=== PATIENT | male | born 1945 | race Caucasian/White ===

== ENCOUNTER 2020-10-19 18:16 | Observation (INO) | payer OTHER, SELFPAY ==
[2020-10-19 18:05] VITALS: BP 107/77; PULSE 69; RESP 18; TEMP 36.8; O2SAT 98
[2020-10-19 18:40] VITALS: BMI 31.5
--- NOTE | 2020-10-19 19:24 | PM.HP.1 ---
History of Present Illness History of Present Illness Date Patient Seen: 10/19/20 Time Patient Seen: 19:24 Chief complaint: TIA Narrative: Patient is a 75-year-old male Sara Anthony who presented today to [facility] with a chief complaint of episode of complete loss of vision in the right eye and cloudy vision in the left eye last night at approximately 2000, lasting for approximately 20 minutes. He stated he had intermittent flashing today, and has balance issues but states that this is from his chronic pain and is is normal baseline. Patient states that his symptoms had resolved the did have some pain in his eyes and feels that may he may be having some photophobia but nothing spectacular. He notes that his normal level generalized pain throughout the body normally he ambulates with a walker or cane but spends majority of his time in bed. Upon admit to [facility] patient reports that he has had no further symptoms, denies chest pain, shortness of breath, weakness, changes in vision, difficulty swallowing, new changes in worsening in balance or coordination, nausea, vomiting, diarrhea, fever, chills, body aches, swelling of hands or feet, rashes, recent illness, injury or trauma. Patient's vitals at the time of transfer temp 36.5?, BP 135/108, HR 66, RR 12, O2 saturation 97% on room air. Patient's labs upon transfer positive rhino virus, RBC 4.32, RBCs 4+ with macrocytosis, glucose 136, EGFR 73, lipase 63. EKG:showed a paced rate of 70 no changes from prior EKG on 02/05/2020, Head CT: No acute intracranial process noted. NIH score of 0 at 12:14 p.m. 10/19/2020. Patient reserved complete workup in ED within EKG and CT of the head were negative for any changes, they did not have MR capabilities and so patient was to be transferred to [facility]. Patient has a history of atrial fibrillation on Eliquis to, CHF, COPD, CVA x 2, thoracic aortic aneurysm, patient has pacemaker, osteoarthritis and rheumatoid arthritis in which he is on immunosuppressive medication. Patient takes singular, Lasix, Mucinex, digoxin, Humira, albuterol HFA, symbicort INH, gabapentin, prednisone, metoprolol, Jardiance, and lisinopril. Patient reports that he has been seen at [facility], and 's in [place] for his previous cardiac and stroke history. Patient's vitals upon admit to [facility] a temp 98.2?, BP 107/77, HR 69, RR 18, O2 saturation 98% on room air. NIH score:0, GCS:15 Patient History Medical History (Updated 10/19/20 @ 20:37 by GABRIELLE Oliver) Atrial fibrillation CHF (congestive heart failure) Chronic pain COPD (chronic obstructive pulmonary disease) History of CVA (cerebrovascular accident) Osteoarthritis Psoriatic arthritis Rheumatoid arthritis Thoracic aortic aneurysm Surgical History (Updated 10/19/20 @ 20:36 by GABRIELLE Oliver) History of bilateral cataract extraction History of permanent cardiac pacemaker placement Family & Social History Family History Mother Neuropathy Rheumatoid arthritis Sister Rheumatoid arthritis Neuropathy Social History: household members Lives alone, unmarried Prior Living Arrangements House- pt is bed bound 80% of the time and ambulates with & walker or cane. Safety & Behavioral: Feels Safe in Current Yes Environment Suicidal Ideation Description None Tobacco & Substance use: Tobacco type cigarettes smoking x 65 yrs Smoking Status Current daily smoker alcohol intake former, none currently pt denies substance use Meds Home Medications and Allergies Home Medications Medication Instructions Recorded Confirmed Type acetaminophen 650 mg PO Q4H PRN 10/19/20 10/19/20 History apixaban 5 mg PO BID 10/19/20 10/19/20 History atorvastatin 40 mg PO BEDTIME 10/19/20 10/19/20 History cholecalciferol (vitamin D3) 50 mcg PO DAILY 10/19/20 10/19/20 History digoxin 125 mcg PO DAILY 10/19/20 10/19/20 History empagliflozin 10 mg PO DAILY 10/19/20 10/19/20 History folic acid 2 mg PO DAILY 10/19/20 10/19/20 History furosemide 40 mg PO DAILY 10/19/20 10/19/20 History gabapentin 600 mg PO TID 10/19/20 10/19/20 History lisinopril 5 mg PO DAILY 10/19/20 10/19/20 History loratadine 10 mg PO DAILY 10/19/20 10/19/20 History methotrexate sodium 15 mg PO QWEEK 10/19/20 10/19/20 History metoprolol succinate 200 mg PO DAILY 10/19/20 10/19/20 History fxsbnubxfjhq-sbd-tvba-FA-vit K 1 tab PO DAILY 10/19/20 10/19/20 History [Adults Multivitamin] prednisone 2 mg PO DAILY 10/19/20 10/19/20 History Review of Systems Review of Systems ROS: Yes All systems reviewed with the patient and are negative except as otherwise documented Exam Vital Signs (past 8 hours): - 10/19/20 18:05 Temperature 98.2 F Pulse Rate 69 Respiratory Rate 18 Blood Pressure 107/77 Pulse Oximetry 98 Oxygen Flow Rate 0 Narrative Exam Narrative: General: Patient is a well-developed, well-nourished in no distress at this time. HEENT: Normocephalic, atraumatic, extraocular muscles intact, oral pharynx is clear and mucous membranes are moist. Neck is supple and symmetric, trachea is midline, no adenopathy, no thyroid enlargement, nontender, no masses palpated. Negative for JVD Chest: Normal AP diameter and contour without kyphoscoliosis, no nasal flaring, retractions, or tachypneic labored Lungs: Auscultation of all lung miller are clear without adventitious sounds, wheezes, rhonchi, or rales. Except occ. wheezing in the right lower lobe. Cardio: regular rate and rhythm without murmur, rubs, or gallops, no carotid bruit, no cardiac pulsations present. Abdomen: Soft nontender, negative for organomegaly, or masses. Bowel sounds are present in all 4 quadrants without guarding or rebound, no CVA tenderness. Musculoskeletal: Muscle strength and tone are equal within normal limits, no deformity, crepitus, effusions, cyanosis, clubbing or edema present. Full range of motion intact radial and pedal pulses are normal. Skin: Warm dry and intact without rashes, ulcerations or petechiae. Neuro: Alert and orientated x3, strength is +5/5 in all extremities, sensation to touch intact, no gross deficits noted of cranial nerves. Psych: Patient has a well-kept appearance, appropriate affect, mental status attitude thought context and judgment are appropriate for age. Assessment & Plan Assessment & Plan narrative: This patient requires acute care inpatient hospital management for possible TIA and higher diagnostic evaluation. The patient is at much higher risk for medical and surgical complications because of his medical history of atrial fibrillation on Eliquis, CHF, COPD, CVA, obesity, thoracic aortic aneurysm, patient has pacemaker, osteoarthritis and rheumatoid arthritis in which he is on immunosuppressive medication. These factors increase the difficulty and complexity of medical and surgical interventions and increases the chances of poor outcomes such as morbidity and mortality. The patient's tobacco abuse & COPD will impact his oxygenation, which will likely contribute to increased risk for stroke. 1. Right sided visual disturbance/vision loss-left eye visual floaters, rule of TIA with history of CVA x 2- last 2019, acute, not present on admission -differential diagnosis TIA, stroke symptoms lasting greater than 24 hours, ischemic stroke, intracranial hemorrhage, subdural hematoma, epidural hematoma, seizure, brain tumor, migraine, vertigo, hypoglycemia, Virgen [place] syndrome, multiple sclerosis, aortic dissection Patient's labs upon transfer positive rhino virus, RBC 4.32, RBCs 4+ with macrocytosis, glucose 136, EGFR 73, lipase 63. EKG:showed a paced rate of 70 no changes from prior EKG on 02/05/2020, Head CT: No acute intracranial process noted. NIH score of 0 at 12:14 p.m. 10/19/2020.vitals upon admit to [facility] a temp 98.2?, BP 107/77, HR 69, RR 18, O2 saturation 98% on room air. NIH score:0, GCS:15, ABCD score:3 Vital signs q.4 hours, neuro checks q.2 hours for 1st 24 hours if unstable, once B/P <180/100 then q.4 hours, notify provider for temp greater than 38 C, , heart rate >100 -treat systolic blood pressure>220 or diastolic blood pressure> 120 -activity bed rest with up with assist only, until initial physical therapy assessment is performed, then mobilize as guided by Physical therapy, strict fall precautions. -supplemental O2 to maintain> 94%, check capillary blood glucose q.6 hours. -Diet NPO until swallow evaluation is done, then heart healthy if cleared -fluids:Saline Lock -Medications: Aspirin 325 mg p.o. q.day within 48 hours, atorvastatin increased to 80 mg daily. Continue pt's Eliquis -labs CBC with platelets, PT/PTT/INR, CMP, TSH, troponins, glucose, hemoglobin A1c, ESR/CRP, Lipid panel -neurology consult, PT/OT/ST evaluations -diagnostics, non-contrast CT of head: No acute intracranial process, EKG: Paced rate of 70, Ordered: echo & Stroke MR tomorrow -discharge planning establish patient has a safe home environment if going home 2. Atrial fibrillation in the setting of CHF with a history of thoracic aortic aneurysm, acute on chronic, not present on admission -pacemaker in place paced rate 69 on admit. -echo ordered for tomorrow -continue patient's Eliquis, digoxin, metoprolol, lisinopril, lasix, atorvastatin 3. Osteoarthritis/rheumatoid arthritis/chronic pain, acute on chronic, present on admission -continue patient's methotrexate, gabapentin, prednisone, jardiance 4. COPD, chronic, not present on admission Continue patient's albuterol HFA inhaler, Symbicort 160-4.5 mcg inhaler Code status: Full code as documented in patient's medical chart from [facility] COVID PCR: Negative-Positive rhino virus patient placed on isolation precautions Surrogate decisionmaker: Rose Marie Islas (Daughter) DVT/VTE prophylaxis: Continue patient's Eliquis, and SCDs Scores GCS [place] coma scale eye opening: Spontaneous [place] coma scale verbal response: Orientated Cooper coma scale motor response: Obey commands Cooper coma scale total score: 15 ABCD2 Age >= 60 years: yes Initial BP. Either SBP >= 140 or DBP >= 90.: yes Clinical features of the TIA: other symptoms Duration of symptoms: 10-59 minutes History of diabetes: no ABCD2 Score: 3 NIHSS Level of Conciousness: Alert, keenly responsive Ask month/age: Answers both questions correctly. Open/close eyes, close hand: Performs both tasks correctly Best gaze horizontal: Normal Visual miller: No visual loss Facial palsy: Normal symetrical movement Left arm drift: No drift for full 10 sec Right arm drift: No drift for full 10 sec Left leg drift: No drift for full 5 sec Right leg drift: No drift for full 5 sec Limb ataxia: Absent Sensory on face/arms/legs: Normal, no sensory loss Best language: No aphasia, normal Dysarthria: Normal Extinction or inattention: No abnormality Total NIH Stroke scale score: 0 Wells' Criteria for PE Clinical signs and symptoms of DVT: No PE is #1 Dx or equally likely: No Heart rate > 100: No Immobilization at least 3 days or surg in previous 4 weeks: Yes History of PE or DVT: No Hemoptysis: No Malignancy w/Treatment within 6 months or palliative: No Wells' PE Score total: 1.5 Quality Stroke Contraindication Not Initiating IV-Tpa: Not indicated Onset of Symptoms Date: 10/18/20 Onset of Symptoms Time: 20:00 Symptom Onset Unknown: Yes Contraindication Antithromb by Day Two: Not indicated (Patient on Eliquis) Rehab Services Assessed: Rehabilitation therapy VTE Deep Vein Thrombosis/Pulmonary Embolism Present on Admission: No MIPS - Admit I confirm the patient?s Advance Care Plan is present, Code status is documented, Surrogate decision maker is in patient?s record [If Yes, STOP here]: Yes
[2020-10-19] MEDS: APIXABAN 5 MG TABLET PO (20:29)
[2020-10-19] MEDS: GABAPENTIN 600 MG TABLET PO (20:30)
[2020-10-19] MEDS: ATORVASTATIN 20 MG TABLET 80 MG PO (20:30)
[2020-10-20 00:26] VITALS: BP 95/67; PULSE 64; RESP 16; TEMP 36.2; O2SAT 94
--- NOTE | 2020-10-20 02:07 | PC.NURSE ---
patient is very drowsy; oriented except to year. NIH = 1 for slight slurring of words. Breath sounds w/late expiratory wheezing throughout; RA sat 94%. Denies SOB, cough or nasal drainage. Is positive for rhinovirus and is on droplet precautions. HRR w/telemetry reading of accelerated ventricular rhythm w/BBB. Denies nausea. BT present and abdomen is soft. Has not yet voided this shift but denies dysuria, frequency or urgency. Is able to turn himself. Gait not assessed but patient states he is weak in LE and uses cane for ambulation. 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 Denies pain. Refuses SCD's so reminded to ankle wave. Fall risk score is high and bed alarm is activated.
[2020-10-20 05:58] VITALS: BP 103/64; PULSE 84; RESP 18; TEMP 36.6; O2SAT 95
[2020-10-20 06:02] LABS: Add Manual Diff / Slide Review NO; Basophils Absolute Auto 0 /uL (0-100); Basophils Percent Auto 0.3 % (0-2); Eosinophils Absolute Auto 0 /uL (0-450); Eosinophils Percent Auto 0.1 % (2-4); Hematocrit 46.3 % (41-53); Hemoglobin 15.9 g/dL (13.5-17.5); Lymphocytes Absolute Auto 800 /uL (1100-4500); Lymphocytes Percent Auto 8.2 % (25-40); Mean Corpuscular HGB Conc 34.3 % (30-36); Mean Corpuscular Hemoglobin 38.9 PG (26-34); Mean Corpuscular Volume 113.4 fL (80-100); Monocytes Absolute Auto 500 /uL (0-900); Monocytes Percent Auto 4.6 % (3-14); Neutrophils Absolute Auto 8800 /uL (1500-7000); Neutrophils Percent Auto 86.8 % (50-75); Platelet Count 136 X10^3/uL (150-400); Red Blood Cell Count 4.09 X10^6/uL (4.5-5.9); Red Cell Distribution Width 14.4 % (11.6-14.8); White Blood Cell Count 10.1 X10^3/uL (4.5-11.0)
[2020-10-20 06:16] LABS: Cholesterol 101 mg/dL (140-199); HDL Cholesterol 29 mg/dL (40-60); LDL Cholesterol Calculated 54 mg/dL (<100); Triglycerides 88 mg/dL (35-150)
[2020-10-20 06:18] LABS: Blood Urea Nitrogen 20 mg/dL (9-20); Calcium 9.2 mg/dL (8.4-10.2); Carbon Dioxide 23 mmol/L (22-32); Chloride 107 mmol/L (98-107); Estimated Glomerular Filt Rate > 60.0 mL/min (>60); Glucose 139 mg/dL (80-110); HEMOLYSIS < 15 (0-50); Potassium 4.3 mmol/L (3.4-5.1); Sodium 137 mmol/L (137-145)
[2020-10-20 06:22] LABS: Macrocytosis 2+
[2020-10-20 07:55] VITALS: BP 106/67; PULSE 66; RESP 17; TEMP 36.5; O2SAT 97
[2020-10-20 08:18] VITALS: BP 106/67; PULSE 66
[2020-10-20] MEDS: ASPIRIN EC 81 MG TABLET PO (08:18)
[2020-10-20] MEDS: DIGOXIN 0.125 MG TABLET PO (08:18)
[2020-10-20 08:19] VITALS: BP 106/67; PULSE 66
[2020-10-20] MEDS: METOPROLOL ER 50 MG TABLET 200 MG PO (08:19)
[2020-10-20] MEDS: FUROSEMIDE 40 MG TABLET PO (08:19)
[2020-10-20] MEDS: GABAPENTIN 600 MG TABLET PO (08:19)
[2020-10-20] MEDS: lisinopriL 5 MG TABLET PO (08:19)
[2020-10-20] MEDS: predniSONE 1 MG TABLET 2 MG PO (08:20)
[2020-10-20] MEDS: SODIUM CHLORIDE 0.9% FLUSH 10 ML IV (08:20)
[2020-10-20] MEDS: ACETAMINOPHEN 325 MG TABLET 650 MG PO (08:20)
[2020-10-20] MEDS: APIXABAN 5 MG TABLET PO (08:23)
--- NOTE | 2020-10-20 08:48 | CM.DANOTE ---
Addendum entered by Katina Peres LPN 10/20/20 11:18: Dr. Curiel confirms that more tests are pending for today but pt may be ready for d/c after this. Spoke with travel agency manager Renee who ok's use of the Medical Relief fund so that a rapid and appropriate d/c from the hospital can be facilitated. Pt has confirmed that he has no one who can transport him home. GERI Perez, taking over case for rest of today, is updated. Original Note: Discharge Planning/Care Management DCP: assessment: case received, EMR reviewed and met with pt. Introduced self and role. Pt is a 75year old male who admitted yesterday evening to care of hospitalist team. Payer: Medicare and [facility] Pt voices his frustration re having been directed by the [place] to [facility] and then sent to for an MRI, which I cannot have because of my pacemaker. He says he is expecting a call from the [place] for further discussion. He is now focused on waiting to see hospitalist today. His family contacts are his daughter Rose Marie Islas: [phone]/ [place]. (Currently off on a fishing boat and not available) and his sister Joelle/[place]. P: follow prn....Should know more after Team Rounds CM Discharge Assessment Start: 10/20/20 08:46 Freq: Status: Active Protocol: Document 10/20/20 08:46 ITV (Rec: 10/20/20 08:48 ITV [id number]) Discharge Planning Assessment Advance Directives? No History Provided By Patient,Medical Record Has Patient been admitted in last 30 No days? Prior Living Arrangements House Household Members none Is patient alert and oriented? Yes DME Already Rented / Owned Cane Review Status In Process
--- NOTE | 2020-10-20 09:40 | DI.US.S_ITS ---
PROCEDURE: US CAROTID DOPPLER BI INDICATIONS: TRANSIENT VISION LOSS TECHNIQUE: Color and pulse Doppler interrogation was performed of both carotid systems, with image documentation and velocity measurements. COMPARISON: None. FINDINGS: Stenosis calculations are based on SRU (Society of Radiologists in Ultrasound) criteria. Right side: Common carotid artery peak systolic velocity: 34 cm/sec. Internal carotid artery peak systolic velocity: 47 cm/sec. Internal carotid artery end diastolic velocity: 15 cm/sec. External carotid artery peak systolic velocity: 66 cm/sec. ICA/CCA peak systolic ratio: 1.4 . Boyle scale imaging description: Moderate soft plaque Percent internal carotid artery stenosis: Less than 50% stenosis . Vertebral artery: Flow direction is antegrade. Left side: Common carotid artery peak systolic velocity: 37 cm/sec. Internal carotid artery peak systolic velocity: 50 cm/sec. Internal carotid artery end diastolic velocity: 20 cm/sec. External carotid artery peak systolic velocity: 50 cm/sec. ICA/CCA peak systolic ratio: 1.3 . Boyle scale imaging description: Moderate soft plaque Percent internal carotid artery stenosis: Less than 50% stenosis . Vertebral artery: Flow direction is antegrade. IMPRESSION: Less than 50% stenosis within the proximal internal carotid arteries bilaterally. Vertebral arterial flow appears normal in direction and phasicity. Dictated by: Javier Horn M.D. on 10/20/2020 at 15:33 Approved by: Javier Horn M.D. on 10/20/2020 at 15:34
[2020-10-20 10:04] LABS: C-Reactive Protein Quant 0.8 mg/dL (<1.0)
--- NOTE | 2020-10-20 10:05 | PT.IIE ---
Surgical History (Last Updated 10/19/20 @ 20:36 by Clare [facility]ain [facility] History of bilateral cataract extraction History of permanent cardiac pacemaker placement Medical History (Last Updated 10/19/20 @ 20:37 [facility] Atrial fibrillation CHF (congestive heart failure) Chronic pain COPD (chronic obstructive pulmonary disease) History of CVA (cerebrovascular accident) Osteoarthritis Psoriatic arthritis Rheumatoid arthritis Thoracic aortic aneurysm Physical Therapy Inpatient Evaluation/Re-Eval M1 PT/OT-IP Prior Functional Status Start: 10/20/20 11:17 Freq: NEEDED Status: Active Protocol: Document 10/20/20 10:05 AB (Rec: 10/20/20 11:39 [email or web address]) Medical Review Prior Functional Status Medical History Reviewed Yes Communication able to make needs known Mobility and Gait pt stated that he is modified indpeendent with all mobilities and ambulaiton using mostly a 4WW but occasionally a SPC depending on how he feels/pain. Social History Household Members none Living Arrangements Mobile home Number of Floors (Floors) One Floor Number of Stairs To Enter/Railing? ramp to enter Home Environment Standard Height Toilet,High Toilet,Tub/Shower Home Equipment Four Wheel Walker,Straight Cane,Power Wheelchair/Scooter, Shower Seat with Backrest,Grab Bars Near Toilet,Grab Bars In Shower Additional Social History Comment pt has an adjustable bed pt stated that he only uses his power w/c for long distance mobility M2 PT-IP Current Condition Start: 10/20/20 11:17 Freq: NEEDED Status: Active Protocol: Document 10/20/20 10:05 AB (Rec: 10/20/20 11:39 AB [id number]) Physical Therapy Current Condition Current Condition Evaluation Date 10/20/20 Treatment Diagnosis TIA; difficulty in walking Onset Date 10/19/20 M3 PT-IP Subjective Start: 10/20/20 11:17 Freq: NEEDED Status: Active Protocol: Document 10/20/20 10:05 AB (Rec: 10/20/20 11:39 AB [email or web address]) Subjective Physical Therapy Visit Type Type Initial Evaluation Visit Start Time 10:05 Visit Stop Time 10:30 Total Visit Minutes 25 Number of GENERATOR OPERATOR Visits 0 Physical Therapy Visit Comments Patient Comments pt agreed to do PT Therapy Pain Assessment Pain When Pain Assessed At Rest Pain Present Pain Present Pain Reported Location Back Scale Used pain scale not stated Description Chronic Pain Management Techniques Distraction,Modification of Treatment,Re-positioning M4 PT-IP Mobility and Gait Start: 10/20/20 11:17 Freq: NEEDED Status: Active Protocol: Document 10/20/20 10:05 AB (Rec: 10/20/20 11:39 AB [id number]) PT-Bed Mobility Assessment Supine to Sit Supine to Sit Independent,Head of Bed Elevated,Bedrails Sit to Supine Sit to Supine Independent,Head of Bed Elevated,Bedrails PT-Transfer Assessment Sit to and From Stand Sit to and from Stand Standby Assistance Equipment Transfer Assistive Device Gait Belt Orthotic/Prosthetic Devices or Brace: No Transfer Ability Level of Assist Standby Assistance Comments Mobility Comments pt sitting on EOB. informed pt regarding PT eval and agreed to do PT but stated that assessment of his mobility will not be accurate as his mobility changes. stated that there are times where he will be able to move ok and times wherein he cannot walk and get out of bed. informed pt that mobiltiy will definitely changes due to his medical issues but PT assessment is necessary to determine safe d/c plan. pt completed sit to stand SBA and ambulated in room using SPC SBA. also demonstrated to PT the he is able to ambulate a few feet without AD. pt completed sit<>supine mod I with HOB elevated and pt used bed rail. pt has an adjustable bed and stated that he uses his headboard at home to assist him with bed mobility. pt has bilateral BLE neuropathy and stated that he has to look at his feet to for balance. Gait Assessment Gait Gait Assistance Required: Standby Assistance Distance (Feet) 30 Able to Maintain Weight Bearing Status Yes During Gait Assistive Devices Assistive Device Gait Belt,Straight Cane Orthotic/Prosthetic Devices or Brace: No Gait Deviations General Gait Pattern Ataxic,Decreased Stride Length ,Decreased Feet Clearance,Wide Based Gait Factors Limiting Gait Function Factors Limiting Gait Function Decreased Activity Tolerance, Decreased Sensation,Decreased Strength,Pain,Poor Balance, Poor Safety Awareness PT-Balance Assessment Sitting Balance and Reactions Static Sitting Balance Ability Good Dynamic Sitting Balance Ability Good Standing Balance and Reactions Static Standing Balance Ability Fair Dynamic Standing Balance Ability Fair Device Used FWW M5 PT-IP Objective Assessments Start: 10/20/20 11:17 Freq: NEEDED Status: Active Protocol: Document 10/20/20 10:05 AB (Rec: 10/20/20 11:39 [id number]) Orientation Orientation/Cognition Level of Alertness Alert Orientation Name,Age,Birthday,Month,Date, Year,Day of Week,Place, Situation Language Function Ability No Deficits Noted Safety Awareness Understands Safety Issues Memory Description No Deficits Noted Gross Range of Motion Lower Extremity ROM Assessment Within Functional Limits Strength Lower Extremity Strength Hip 4-/5 Knee 4-/5 Coordination Assessment Gross Coordination Gross Coordination WNL Sensation Assessment Sensation Gross Sensation Right LE Impaired,Left LE Impaired Light Touch Impaired Proprioception (Position) Impaired Sensation Description Numbness Comments Sensation Comments per pt: neuropathy on BLE and with decrease proprioception Muscle Tone Muscle Tone WNL Yes M6 PT-IP Treatment Start: 10/20/20 11:17 Freq: NEEDED Status: Active Protocol: Document 10/20/20 10:05 AB (Rec: 10/20/20 11:39 [id number]) Physical Therapy Treatment Education Education Provided Safety M7 PT-IP Assessment and Plan Start: 10/20/20 11:17 Freq: NEEDED Status: Active Protocol: Document 10/20/20 10:05 AB (Rec: 10/20/20 11:39 [email or web address]) PT Summary Assessment and Plan Potential Rehabilitation Potential Good Status of Condition at Evaluation Stable Summary Impairments Pain,Balance,Sensation, Transfers,Gait,Activity Tolerance Assessment Summary PT eval completed. No further PT intervention indicated at this time and pt is at OF. pt stated that he does exercises at home and when he went to do PT, it aggravated his condition more. pt directs his own care and knows when he needs to use his 4WW/ SPC for stability. pt has chronic peripheral neuropathy affecting balance and mobility . pt stated that he is going home today. Frequency of Treatment Frequency Of Treatment Discharge Recommendations To Nursing Amount of Assist Needed Standby Assistance Discharge Recommendations PT Discharge Recommendations Home Transportation Needs at Discharge Private Vehicle
[2020-10-20 10:08] LABS: Erythrocyte Sedimentation Rate 10 MM/HR (0-15)
--- NOTE | 2020-10-20 10:12 | PM.DS.1 ---
History of Present Illness History of Present Illness Chief complaint: TIA Narrative: Per H and P by Clare Husain: Patient is a 75-year-old male Sara Anthony who presented today to [facility] with a chief complaint of episode of complete loss of vision in the right eye and cloudy vision in the left eye last night at approximately 2000, lasting for approximately 20 minutes. He stated he had intermittent flashing today, and has balance issues but states that this is from his chronic pain and is is normal baseline. Patient states that his symptoms had resolved the did have some pain in his eyes and feels that may he may be having some photophobia but nothing spectacular. He notes that his normal level generalized pain throughout the body normally he ambulates with a walker or cane but spends majority of his time in bed. Upon admit to [facility] patient reports that he has had no further symptoms, denies chest pain, shortness of breath, weakness, changes in vision, difficulty swallowing, new changes in worsening in balance or coordination, nausea, vomiting, diarrhea, fever, chills, body aches, swelling of hands or feet, rashes, recent illness, injury or trauma. Patient's vitals at the time of transfer temp 36.5?, BP 135/108, HR 66, RR 12, O2 saturation 97% on room air. Patient's labs upon transfer positive rhino virus, RBC 4.32, RBCs 4+ with macrocytosis, glucose 136, EGFR 73, lipase 63. EKG:showed a paced rate of 70 no changes from prior EKG on 02/05/2020, Head CT: No acute intracranial process noted. NIH score of 0 at 12:14 p.m. 10/19/2020. Patient reserved complete workup in ED within EKG and CT of the head were negative for any changes, they did not have MR capabilities and so patient was to be transferred to [facility]. Patient has a history of atrial fibrillation on Eliquis to, CHF, COPD, CVA x 2, thoracic aortic aneurysm, patient has pacemaker, osteoarthritis and rheumatoid arthritis in which he is on immunosuppressive medication. Patient takes singular, Lasix, Mucinex, digoxin, Humira, albuterol HFA, symbicort INH, gabapentin, prednisone, metoprolol, Jardiance, and lisinopril. Patient reports that he has been seen at [facility], and [facility] in [place] for his previous cardiac and stroke history. Patient's vitals upon admit to [facility] a temp 98.2?, BP 107/77, HR 69, RR 18, O2 saturation 98% on room air. NIH score:0, GCS:15 Discharge Providers Provider Date of admission: 10/19/20 18:16 Discharge Date: 10/20/20 Consults: 10/19/20 18:32 Consult to Discharge Planning Routine Comment: Consult to Occupational Therapy Evaluate & Treat Comment: Physician Instructions: Evaluate and treat Consult to Physical Therapy Evaluate & Treat Comment: Physician Instructions: Evaluate and Treat Consult to Speech Therapy Evaluate & Treat Comment: Physician Instructions: Evaluate and treat Discharge provider: Elvin Curiel MD Summary Hospital Course Discharge Diagnosis: 1. Amaurosis fugax, right eye 2. Atrial fibrillation 3. CHF with preserved EF of 50% 4. Osteoarthritis/Rheumatoid arthritis 5. COPD 6. Moderate aortic stenosis 7. Hypertension 8. s/p pacemaker 9. History of CVA Hospital Course: Mr. Anthony initially experienced sudden onset blackness in his right eye that improved over the next few minutes. He presented to [facility] ER the following day and his symptoms had resolved. He had CT scan that was negative for abnormality. He was transferred for further workup for eye changes. He was unable to undergo MRI due to pacemaker. He did have ECHO done that showed moderate aortic stenosis but did not show any clot. Carotid ultrasound had no significant stenosis. ESR and CRP were not elevated which ruled of giant cell arteritis. Call was placed to recovery auditor at [facility] who will be happy to see patient Friday in clinic, this was relayed to patient to call at their number for an appointment. The rest of his medical issues remained well controlled in the hospital. He did have an unremarkable lipid panel, a1c was 6.0, and his blood pressure was well controlled. He was kept on his apixaban and atorvastatin with no significant medication changes. Exam Vital Signs (past 8 hours): Oxygen Delivery Method Room Air Oxygen Flow Rate 0 Narrative Exam Narrative: General: no distress at this time. HEENT: Normocephalic, atraumatic, mucous membranes are moist. Negative for JVD Lungs: clear bilaterally, no wheezes, rhonchi, rales Cardio: regular rate and rhythm without murmur Abdomen: Soft nontender, negative for organomegaly Musculoskeletal: Muscle strength and tone are equal within normal limits Skin: Warm dry and intact without rashes, ulcerations or petechiae. Neuro: Alert and orientated x3, cranial nerves 2-12 intact, visual field intact, and vision grossly intact, strength is +5/5 in all extremities except 4/5 in upper left arm which patient says is at baseline Objective Labs Result Diagrams: 10/20/20 05:41 10/20/20 05:41 Labs: Laboratory Results - last 24 hr 10/20/20 10/20/20 10/20/20 05:41 05:41 05:41 WBC 10.1 RBC 4.09 L Hgb 15.9 Hct 46.3 MCV 113.4 H MCH 38.9 H MCHC 34.3 RDW 14.4 Plt Count 136 L Neut % (Auto) 86.8 H Lymph % (Auto) 8.2 L Dade % (Auto) 4.6 Eos % (Auto) 0.1 L Baso % (Auto) 0.3 Neut # (Auto) 8800 H Lymph # (Auto) 800 L Dade # (Auto) 500 Eos # (Auto) 0 Baso # (Auto) 0 RBC Morphology See below Macrocytosis 2+ H ESR Sodium Potassium Chloride Carbon Dioxide BUN Creatinine Estimated GFR BUN/Creatinine Ratio Glucose Hemoglobin A1c 6.0 Calcium C-Reactive Protein Triglycerides 88 Cholesterol 101 L LDL Cholesterol, Calc 54 HDL Cholesterol 29 L 10/20/20 10/20/20 10/20/20 05:41 05:52 05:52 WBC RBC Hgb Hct MCV MCH MCHC RDW Plt Count Neut % (Auto) Lymph % (Auto) Dade % (Auto) Eos % (Auto) Baso % (Auto) Neut # (Auto) Lymph # (Auto) Dade # (Auto) Eos # (Auto) Baso # (Auto) RBC Morphology Macrocytosis ESR 10 Sodium 137 Potassium 4.3 Chloride 107 Carbon Dioxide 23 BUN 20 Creatinine 1.00 Estimated GFR > 60.0 BUN/Creatinine Ratio 20.0 Glucose 139 H Hemoglobin A1c Calcium 9.2 C-Reactive Protein 0.8 Triglycerides Cholesterol LDL Cholesterol, Calc HDL Cholesterol [facility] Medical History (Updated 10/19/20 @ 20:37 by GABRIELLE Oliver) Atrial fibrillation CHF (congestive heart failure) Chronic pain COPD (chronic obstructive pulmonary disease) History of CVA (cerebrovascular accident) Osteoarthritis Psoriatic arthritis Rheumatoid arthritis Thoracic aortic aneurysm Surgical History (Updated 10/19/20 @ 20:36 by GABRIELLE Oliver) History of bilateral cataract extraction History of permanent cardiac pacemaker placement Family History Mother Neuropathy Rheumatoid arthritis Sister Rheumatoid arthritis Neuropathy Social History household members: none Smoking Status: Current some day smoker alcohol intake: former Discharge Plan Discharge Plan Patient Disposition: Home Provider Discharge Comment: Mr. Anthnoy was admitted with vision changes that he noted at home. He had complete black vision in his right eye that improved in a few minutes after he noted some monochromatic changes. He had some blurriness and floaters in his left eye which has occurred for him before. He went to [facility] which where a CT was done that did not show any large stroke or bleeding. He was transferred here and could not get an MRI because due to his pacemaker. He did have an ultrasound of his heart and neck veins to look for a clot but this was negative. He had inflammatory blood markers checked as this can cause vision changes, but this was negative. His vision was much improved from the blackness when he was discharged. He is recommended to follow up with [facility], to call Friday, for a full eye evaluation. Discharge orders & Medications Prescriptions: Continued furosemide 40 mg Tablet 40 mg PO DAILY RF: 0 atorvastatin 40 mg Tablet 40 mg PO BEDTIME RF: 0 metoprolol succinate 200 mg Tablet Extended Release 24 Hr 200 mg PO DAILY RF: 0 acetaminophen 650 mg Tablet 650 mg PO Q4H PRN (Reason: Pain (Scale Score 1-3)) RF: 0 methotrexate sodium 2.5 mg Tablet 15 mg PO QWEEK RF: 0 prednisone 1 mg Tablet 2 mg PO DAILY RF: 0 folic acid 1 mg Tablet 2 mg PO DAILY RF: 0 lisinopril 5 mg Tablet 5 mg PO DAILY RF: 0 digoxin 125 mcg (0.125 mg) Tablet 125 mcg PO DAILY RF: 0 loratadine 10 mg Tablet 10 mg PO DAILY RF: 0 gabapentin 300 mg Tablet 600 mg PO TID RF: 0 cholecalciferol (vitamin D3) 25 mcg (1,000 unit) Tablet 50 mcg PO DAILY RF: 0 apixaban 5 mg Tablet 5 mg PO BID RF: 0 empagliflozin 10 mg Tablet 10 mg PO DAILY RF: 0 Adults Multivitamin 18 mg iron-400 mcg-25 mcg Tablet 1 tab PO DAILY RF: 0 Diet/Activity/Treatments Diet: Diet as Tolerated Discharge Data Attending Provider: Elvin Curiel Stroke Contraindication Not Initiating IV-Tpa: Not indicated Onset of Symptoms Date: 10/18/20 Onset of Symptoms Time: 20:00 Symptom Onset Unknown: Yes Contraindication Antithromb by Day Two: Not indicated (Patient on Eliquis) Rehab Services Assessed: Rehabilitation therapy VTE Deep Vein Thrombosis/Pulmonary Embolism Present on Admission: No MIPS - DC The patient has current or prior documentation of left ventricular ejection fraction (LVEF) less than 40%, or moderate or severely depressed left ventricular systolic function.: No
--- NOTE | 2020-10-20 10:55 | OT.IPNOTE ---
Attempted to see pt for OT eval and pt refusing to be seen as feels able to care for himself. If pt still here tomorrow, to check again on pt for OT eval.
--- NOTE | 2020-10-20 11:33 | SLP.IPNOTE ---
Order received. Discussion with nursing indicated that pt is back to baseline for both speech/language and swallowing. Will discharge at this time.
[2020-10-20 13:13] VITALS: BP 101/69; PULSE 64; RESP 18; TEMP 36.6; O2SAT 95
--- NOTE | 2020-10-20 13:29 | CM.DPNOTE ---
Called and spoke to Bert at [facility] [phone] and he was in [place] and the soonest he could be here was 3:45 PM. Ana will inform the patient. Estella Braden CM Asst.
--- NOTE | 2020-10-20 14:54 | CM.DPNOTE ---
DC Note DC order in place. Assisting BAO Ambriz w/coordination of transport home. Met w/patient to review transportation options; -patient does not have Medicaid transport benefit -patient has no one available to pick him up -patient is not considered to be safe to travel via bus back to [place] -patient has [facility] call to [facility]..patient typically has one of the [facility] v[facility] up but they [place] -does not have the funds available to pay for taxi home Patient continues to state everyone knew I had a pace maker, and yet I was sent here for an MRI anyway. This GLOBAL COMMODITY MANAGER supported patient as he described the inconveniences he was experiencing. This GLOBAL COMMODITY MANAGER and BAO Ambriz discussed case earlier w/CM Giulia Sanches who approved taxi voucher if no other means of transport could be arranged. KHLOE Soria assisting, initial [facility] taxi available at 1545, then updated to 1500. Patient and RN made aware. Taxi voucher form via policy tech completed and signed by this GLOBAL COMMODITY MANAGER, original to BAO Sanches and copy provided to patient to give to oil truck driver Plan: DC home via taxi voucher, [employer], close outpatient f/u recommended GERI Fernandez
--- NOTE | 2020-10-20 14:56 | PC.NURSE ---
Addendum entered by Clare Handy R.N. 10/20/20 15:02: [facility] sent with patient prior to dc. Original Note: AM Pt is agitated and expresses frustration with staying in hospital awaiting tests that surely are charged by the hour Pt unable to get MRI done this am d/t pacer, echo and US of coratid done this afternoon. Pt continues with agitation about remaining in hospital. Taxi set up for transportation back to [facility]. IV removed and dc paperwork reviewed, Pt to f/u with opthamology friday. Remains light sensitive, but reports further from admission, light sensitivity is improving. Pt to [facility].
--- NOTE | 2020-10-20 18:36 | DI.ECHO.S_ITS ---
[facility] +---------+ : : [address] : : [place], [place] : : : : [id number] : : : : Phone: [phone]+ Echocardiogram Report + + :Name: SARANYA GUZMAN Study Date: 10/20/2020 Height: 73 in : :[facility] ReadingLocation: Weight: 237 lb : : Gender: Male BSA: 2.3 m2 : :: 1945 Age: 75 yrs BP: 106/67 mmHg: :Reason For Study: CVA : :Ordering Physician: Bolivar : :Hospitalist Performed By: Sil Ibrahim : :Referring: MILES HODGE : + + Interpretation Summary The left ventricle is normal in size. Left ventricular ejection fraction is estimated to be 50 +/- 5%. Hypokinesis of basal to mid inferior wall extending into the basal to mid inferior lateral wall. Apical wall motion abnormality may reflect pacemaker activation. The right ventricle is mildly dilated. Right ventricular systolic function is mildly reduced. There is a pacemaker lead in the right ventricle. The aortic valve is moderately calcified. There is moderately reduced leaflet mobility. The peak aortic velocity is 3.0 m/sec. The aortic valve mean gradient is 23 mmHg. The calculated aortic valve area is 1.2 cm2. There is moderate aortic stenosis. There is moderate aortic regurgitation. The ascending aorta is moderately enlarged. Mild atherosclerotic plaque(s) in the aortic arch. Procedure: A two-dimensional transthoracic echocardiogram with color flow and Doppler was performed. The study quality was technically adequate. There is no prior echocardiogram noted for this patient. The patient has a paced rhythm. Left Ventricle: The left ventricle is normal in size. Left ventricular wall thickness is mildly increased. There is moderate proximal septal thickening noted. There is no echo evidence for significant left ventricular outflow tract obstruction. There is no thrombus. Left ventricular ejection fraction is estimated to be 50 +/- 5%. Hypokinesis of basal to mid inferior wall extending into the basal to mid inferior lateral wall. Apical wall motion abnormality may reflect pacemaker activation. Diastolic function could not be accurately assessed due to paced rhythm. Right Ventricle: There is a pacemaker lead in the right ventricle. The right ventricle is mildly dilated. Right ventricular systolic function is mildly reduced. Atria: The left atrium is severely dilated. The right atrium is moderate to severely dilated. Mitral Valve: There is mild mitral annular calcification. There is mild mitral regurgitation. Aortic Valve: The aortic valve is trileaflet. The aortic valve is moderately calcified. There is moderately reduced leaflet mobility. The peak aortic velocity is 3.0 m/sec. The aortic valve mean gradient is 23 mmHg. The aortic valve area indexed to the BSA is 0.53 . There is moderate aortic stenosis. The calculated aortic valve area is 1.2 cm2. There is moderate aortic regurgitation. There is an eccentric jet of aortic insufficiency directed against the anterior mitral leaflet. Tricuspid Valve: The tricuspid valve leaflets are thin and pliable. There is trace tricuspid regurgitation. The right ventricular systolic pressure is estimated to be at least 17 mmHg based on an estimated right atrial pressure of 3 mm Hg. Pulmonic Valve: The pulmonic valve leaflets are thin and pliable; valve motion is normal. There is no pulmonic valvular regurgitation. Great Vessels: The aortic root is mildly dilated. The ascending aorta is moderately enlarged. The aortic arch could not be visualized. Mild atherosclerotic plaque(s) in the aortic arch. The IVC is of normal diameter and collapses greater than 50% with a sniff. This suggests a low right atrial pressure of 3 mm Hg. Pericardium/ Pleura There is no pericardial effusion. MMode/2D Measurements & Calculations LVIDd: 5.3 cm LVOT diam: 2.4 cm LVIDs: 3.5 cm Ao root diam: 4.7 cm FS: 33.8 % asc Aorta Diam: 4.4 cm IVSd: 1.4 cm LVPWd: 1.1 cm LV mckeon. diameter/BSA (cm/m^2): 2.3 LV sys. diameter/BSA (cm/m^2): 1.5 LA A2 area: 42.6 cm2 RA long axis: 7.0 cm LA A4 area: 37.6 cm2 RA area: 27.0 cm2 LA length (vol): 6.9 cm RA vol: 88.7 ml LA vol: 196.6 ml RA : 38.4 ml/m2 LA vol index: 85.0 ml/m2 IVC diam: 1.7 cm RVD1 (basal): 4.6 cm TAPSE: 1.5 cm Doppler Measurements & Calculations Ao V2 max: 302.0 cm/sec LVOT Max Fbaiano: 77.2 cm/sec Ao V2 mean: 227.4 cm/sec LV V1 max P.4 mmHg Ao max P.7 mmHg LV V1 VTI: 16.1 cm Ao mean P.8 mmHg ALECIA(I,D): 1.2 cm2 Ao V2 VTI: 60.6 cm ALECIA(V,D): 1.2 cm2 sev ratio: 0.27 ALECIA indexed to BSA (cm^2/m^2): 0.53 AI P1/2t: 767.0 msec AI dec slope: 137.1 cm/sec2 MV E max fabiano: 70.8 cm/sec TR max fabiano: 183.5 cm/sec Med Peak E' Fabiano: 5.2 cm/sec TR max P.5 mmHg E/E' med: 13.7 PA V2 max: 42.7 cm/sec Lat Peak E' Fabiano: 7.6 cm/sec PA V2 mean: 35.2 cm/sec E/E' lat: 9.3 PA mean P.51 mmHg E/e' average: 11.5 PA pr(Accel): 21.2 mmHg SV(LVOT): 73.6 ml Reading Physician:02:11 PM
== END 2020-10-20 15:03 | disposition home or self-care (01) ==
PROVIDERS: Admitting Provider Internal Medicine; Referring Provider Internal Medicine; Visit Provider Internal Medicine
DX: G45.3 Amaurosis fugax (principal); I48.91 Unspecified atrial fibrillation; I50.9 Heart failure, unspecified; I11.0 Hypertensive heart disease with heart failure; I35.0 Nonrheumatic aortic (valve) stenosis; M06.9 Rheumatoid arthritis, unspecified; M19.90 Unspecified osteoarthritis, unspecified site; J44.9 Chronic obstructive pulmonary disease, unspecified; Z86.73 Personal history of transient ischemic attack (TIA), and cerebral infarction without residual deficits; Z79.01 Long term (current) use of anticoagulants; Z95.0 Presence of cardiac pacemaker; F17.210 Nicotine dependence, cigarettes, uncomplicated
CPT/HCPCS: 36415; 80048; 80061; 82962; 83036; 85025; 85651; 86140; 93306; 93880; 97161; 99406; G0378; G0379